=== PATIENT | male | born 1990 | race Caucasian/White ===

== ENCOUNTER 2017-10-19 01:49 | Emergency (ER) | payer BC, OTHER ==
[~2017-10-19] VITALS: Ht 177.8 cm; Wt 83.9 kg
== END 2017-10-19 04:47 | disposition home or self-care (01) ==
LOC: ED 01:49
DX: F10.129 Alcohol abuse with intoxication, unspecified (principal); Y90.8 Blood alcohol level of 240 mg/100 ml or more
CPT/HCPCS: 80053; 85025; 96360; 96361; 99283; G0480; J7030